=== PATIENT | male | born 1980 | race Caucasian/White ===

== ENCOUNTER 2017-02-06 19:43 | Emergency (ER) | payer SELFPAY ==
[2017-02-06 19:57] VITALS: BP 145/94; PULSE 75; TEMP 97.8; BMI 26.9
--- NOTE | 2017-02-06 19:58 | PDOC ---
Rapid Medical Evaluation Time Seen by Provider: 02/06/17 19:56 Medical Evaluation: Allergies Allergy/AdvReac Type Severity Reaction Status Date / Time No Known Allergies Allergy Verified 02/06/17 19:52 02/06/17 19:57 I have performed a brief in-person evaluation of this patient. The patient presents with a chief complaint of: left lower premolar toothache x4d Pertinent physical exam findings: left lower premolar toothache on percussion I have ordered the following: clindamycin 600mg, The patient will proceed to the ED for further evaluation.
[2017-02-06] MEDS ORDERED: CLINDAMYCIN HCL 300 MG CAPSULE PO ONE (20:03)
--- NOTE | 2017-02-06 20:03 | PDOC ---
History of Present Illness - General Chief Complaint: Toothache Stated Complaint: PAIN Time Seen by Provider: 02/06/17 19:56 History Source: Patient Exam Limitations: No Limitations - History of Present Illness Initial Comments: 02/06/17 19:59 36 yo M w/o any pmhx c/o left lower premolar toothache x4d without feer/chills, n/v, facial pain, jaw pain, sore throat, diff swallowing. Pain is described as 6 /10 throbbing non radiating discomfort. Pain exacerbated with cold fluids and alleviated minimally with tylenol which he last took at 1630hrs today. Timing/Duration: other (x4d) Past History - Past Medical History Allergies/Adverse Reactions: Allergies Allergy/AdvReac Type Severity Reaction Status Date / Time No Known Allergies Allergy Verified 02/06/17 19:52 Home Medications: Ambulatory Orders Acetaminophen [Tylenol] 650 mg PO QID 02/06/17 COPD: No - Suicide/Smoking/Psychosocial Hx Smoking History: Never smoked Review of Systems - Review of Systems Able to Perform ROS?: Yes Is the patient limited Tajik proficient: No Constitutional: No: Fever, Loss of Appetite, Malaise HEENTM: Yes: Dental Problems. No: Tinnitus, Throat Pain, Throat Swelling, Mouth Pain, Difficulty Swallowing *Physical Exam - Vital Signs Last Vital Signs Temp Pulse Resp BP Pulse Ox 97.8 F 75 16 145/94 99 02/06/17 19:55 02/06/17 19:55 02/06/17 19:55 02/06/17 19:55 02/06/17 19:55 - Physical Exam HEENT: positive: EOMI, CATA, Normal ENT Inspection, Normal Voice, Symmetrical. negative: Muffled/Hoarse voice, Pharyngeal Erythema, Tonsillar Exudate, Tonsillar Erythema, Nasal Congestion, Rhinorrhea Neck: positive: Trachea midline, Normal Thyroid, Supple. negative: Tender, Rigid *DC/Admit/Observation/Transfer Diagnosis at time of Disposition: Toothache - Discharge Dispostion Disposition: HOME Condition at time of disposition: Good Admit: No - Referrals Referrals: Keith Winters MD [Non Staff, Medical] - - Patient Instructions Printed Discharge Instructions: DI for Dental Pain Additional Instructions: Take tylenol alternating with motrin for pain Rx: clindamycin as prescribed FOLLOW UP WITH THE DENTIST WITHIN 48 HORUS Return to the ER for severe/persistent/worsening symptoms - Post Discharge Activity
== END 2017-02-06 20:21 | disposition home or self-care (01) ==
LOC: JERFT 19:43
DX: K08.89 Other specified disorders of teeth and supporting structures (principal)
CPT/HCPCS: 99281-25